=== PATIENT | male | born 1990 | race Caucasian/White ===

== ENCOUNTER 2016-05-20 22:01 | Emergency (ER) | payer MEDICARE ==
[2016-05-20 22:23] VITALS: BP 140/90; PULSE 86; TEMP 98.4; O2SAT 99
--- NOTE | 2016-05-20 23:28 | C.PDOC ---
History Of Present Illness A 25 year old male presents to the emergency room with complaints of mid- sternal chest pain for 2 weeks. Patient reports that he felt a pull in the mid- sternum while stretching upwards. Patient was seen by PMD yesterday, who advised him to use Albuterol inhaler and to take Tylenol. Patient states that he did not take Tylenol and is requesting an MRI of the chest. Patient denies any abdominal pain, nausea, vomiting, dizziness, palpitations, SOB or any other complaints. Time Seen by Provider: 05/20/16 22:26 Chief Complaint (Nursing): Rib Injury History Per: Patient History/Exam Limitations: no limitations Onset/Duration Of Symptoms: Other (2 weeks) Current Symptoms Are (Timing): Still Present Severity: Mild Recent travel outside of the [place]: No Past Medical History Reviewed: Historical Data, Nursing Documentation, Vital Signs Vital Signs: Last Vital Signs Temp 98.4 F 05/20/16 22:14 Pulse 86 05/20/16 22:14 Resp 20 05/20/16 23:32 BP 140/90 05/20/16 22:14 Pulse Ox 99 05/21/16 00:38 - Medical History PMH: Asthma, Back Problems, Bronchitis Family History: States: Unknown Family Hx - Social History Hx Tobacco Use: No Hx Alcohol Use: No Hx Substance Use: No - Immunization History Hx Tetanus Toxoid Vaccination: Yes Hx Influenza Vaccination: Yes Hx Pneumococcal Vaccination: Yes Review Of Systems Except As Marked, All Systems Reviewed And Found Negative. Cardiovascular: Positive for: Chest Pain (Mid-sternal chest pain) Gastrointestinal: Negative for: Nausea, Vomiting, Abdominal Pain Neurological: Negative for: Dizziness Physical Exam - Physical Exam Appears: Well, Non-toxic, No Acute Distress Skin: Normal Color, Warm, Dry Head: Atraumatic, Normacephalic Eye(s): bilateral: Normal Inspection, PERRL Neck: Normal ROM, Supple Chest: Tenderness (Mild reproducible peristernal chest wall tenderness) Cardiovascular: Rhythm Regular Respiratory: Normal Breath Sounds (Good air entry), No Rales, No Rhonchi, No Wheezing Gastrointestinal/Abdominal: Soft, No Tenderness (epigastric), No Guarding, No Rebound Extremity: Normal ROM, No Tenderness Neurological/Psych: Oriented x3, Normal Speech ED Course And Treatment O2 Sat by Pulse Oximetry: 99 Pulse Ox Interpretation: Normal - Radiology CXR: Interpreted by Me, Viewed By Me CXR Interpretation: Yes: No Acute Disease. No: Pnemothorax Progress Note: Patient is lying comfortably on the stretcher playing on his phone. CXR was negative. Patient was given Motrin. On reevaluation, patient notes improvement of pain and feels comfortable going home. Patient instructed to follow up with PMD within a few days. Reassessment Condition: Improved Disposition Counseled Patient/Family Regarding: Diagnosis, Need For Followup, Rx Given - Disposition Referrals: Shaik Matthews MD [Staff Provider] - Disposition: HOME/ ROUTINE Disposition Time: 23:26 Condition: STABLE Additional Instructions: Take motrin for pain Follow up with your doctor Return to ER if increasing pain, nausea, vomiting, sweating, dizziness , difficulty breathing or worse Prescriptions: Ibuprofen [Motrin] 600 mg PO Q6H #30 tab Instructions: Chest Wall Pain (ED) - Clinical Impression Clinical Impression: Chest wall pain - Scribe Statement The provider has reviewed the documentation as recorded by the Scribwero Yost All medical record entries made by the Indiraibwero were at my direction and personally dictated by me. I have reviewed the chart and agree that the record accurately reflects my personal performance of the history, physical exam, medical decision making, and the department course for this patient. I have also personally directed, reviewed, and agree with the discharge instructions and disposition.
[2016-05-20 23:33] VITALS: RESP 20
--- NOTE | 2016-05-21 08:33 | RAD ---
HISTORY: mid chest pain COMPARISON: None available. TECHNIQUE: Chest PA and lateral FINDINGS: LUNGS: No focal consolidation. Please note that chest x-ray has limited sensitivity for the detection of pulmonary masses. PLEURA: No significant pleural effusion identified. No definite pneumothorax . CARDIOVASCULAR: The cardiomediastinal silhouette appears within normal limits of size. OSSEOUS STRUCTURES: Degenerative changes of the spine. VISUALIZED UPPER ABDOMEN: Unremarkable. OTHER FINDINGS: None. IMPRESSION: No focal consolidation, significant pleural effusion, or definite pneumothorax identified.
== END 2016-05-20 23:32 | disposition home or self-care (01) ==
LOC: C.ER 22:01
DX: R07.89 Other chest pain (principal)

== ENCOUNTER 2017-11-09 20:25 | Emergency (ER) | payer MEDICARE ==
[2017-11-09 20:59] VITALS: TEMP 98.1
[2017-11-09] MEDS ORDERED: Sodium Chloride 0.9% 1,000 ML IV ONE (21:53)
--- NOTE | 2017-11-09 21:58 | C.PDOC ---
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 Patient states he had an MRI done 2 years ago and was prescribed gabapentin by Dr. Hair. Patient states that for the past week he has been experiencing tightness of the back of his neck, nausea and headache. Patient also c/o occasional vomiting, dizziness, lightheadedness and cramping in his legs and fingers. Patient states all his symptoms come and go. Patient took Ibuprofen this morning with no relief. Patient denies new trauma, injury, fall, visual changes, weakness, numbness, CP , SOB, abdominal pain. Time Seen by Provider: 11/09/17 21:42 Chief Complaint (Nursing): Dizziness/Lightheaded History Per: Patient History/Exam Limitations: no limitations Onset/Duration Of Symptoms: Days (week), Intermittent Episodes Current Symptoms Are (Timing): Still Present Seizure Or Post-ictal Symptoms: None Fall Associated With With Symptoms: No Severity: None Recent travel outside of the [place]: No Additional History Per: Patient Past Medical History Reviewed: Historical Data, Nursing Documentation, Vital Signs Vital Signs: Last Vital Signs Temp 98.1 F 11/09/17 20:54 Pulse 104 H 11/09/17 20:54 Resp 20 11/09/17 20:54 BP 146/82 11/09/17 20:54 Pulse Ox 98 11/09/17 22:00 - Medical History PMH: Asthma, Back Problems, Bronchitis Surgical History: No Surg Hx Family History: States: Unknown Family Hx - Social History Hx Tobacco Use: No Hx Alcohol Use: No Hx Substance Use: No - Immunization History Hx Tetanus Toxoid Vaccination: No Hx Influenza Vaccination: No Hx Pneumococcal Vaccination: No Review Of Systems Constitutional: Negative for: Fever, Chills Eyes: Negative for: Vision Change Cardiovascular: Negative for: Chest Pain Respiratory: Negative for: Shortness of Breath Gastrointestinal: Negative for: Nausea, Vomiting Musculoskeletal: Positive for: Neck Pain, Arm Pain, Back Pain Skin: Negative for: Rash Neurological: Positive for: Dizziness. Negative for: Weakness, Numbness, Headache Physical Exam - Physical Exam Appears: Non-toxic, No Acute Distress Skin: Normal Color, Warm, Dry Head: Atraumatic, Normacephalic Eye(s): bilateral: Normal Inspection Oral Mucosa: Moist Neck: Normal ROM, No Midline Cervical Tenderness, Supple Chest: Symmetrical Cardiovascular: Rhythm Regular Respiratory: Normal Breath Sounds, No Rales, No Rhonchi, No Wheezing Gastrointestinal/Abdominal: Soft, No Tenderness, No Guarding, No Rebound Back: No Vertebral Tenderness, No Paraspinal Tenderness Extremity: Normal ROM, No Tenderness, No Swelling Neurological/Psych: Oriented x3, Normal Speech, Normal Cognition, Normal Cranial Nerves, Normal Motor, Normal Sensation Gait: Steady ED Course And Treatment - Laboratory Results Result Diagrams: 11/09/17 22:11 11/09/17 22:11 Lab Interpretation: Normal O2 Sat by Pulse Oximetry: 98 (ON RA) Pulse Ox Interpretation: Normal Reevaluation Time: 23:05 Reassessment Condition: Unchanged Medical Decision Making Medical Decision Making: Plan: * Labs * Motrin 600 mg PO * IV fluids Disposition Counseled Patient/Family Regarding: Studies Performed, Diagnosis, Need For Followup, Rx Given - Disposition Referrals: Shaik Matthews MD [Staff Provider] - Disposition: HOME/ ROUTINE Disposition Time: 23:08 Condition: STABLE Prescriptions: Cyclobenzaprine [Flexeril] 10 mg PO TID PRN #10 tab PRN Reason: Pain, Severe (8-10) Meloxicam [Mobic] 15 mg PO DAILY PRN #14 tab PRN Reason: Pain, Severe (8-10) Instructions: Chronic Neck Pain (DC), Dizziness, Nonvertigo, (DC) Forms: [facility] (Gabonese) - Clinical Impression Clinical Impression: Dizziness, Chronic neck pain - Scribe Statement The provider has reviewed the documentation as recorded by the Scribe Jet Azul All medical record entries made by the Scribe were at my direction and personally dictated by me. I have reviewed the chart and agree that the record accurately reflects my personal performance of the history, physical exam, medical decision making, and the department course for this patient. I have also personally directed, reviewed, and agree with the discharge instructions and disposition.
[2017-11-09] MEDS ORDERED: Sodium Chloride 0.9% 1,000 ML ONE (21:59)
[2017-11-09 22:16] LABS: BASO # 0.1 K/uL (0.0-0.2); BASO % 0.8 % (0.0-2.0); EOS # 0.3 K/uL (0.0-0.7); EOS % 3.4 % (0.0-4.0); HEMOGLOBIN 15.4 g/dL (12.0-18.0); LYMPH # 2.6 K/uL (1.0-4.3); LYMPH % 32.7 % (20.0-40.0); MEAN CELL VOLUME 84.1 fL (80.0-94.0); MEAN CORPUSCULAR HEMOGLOBIN 28.8 pg (27.0-31.0); MEAN CORPUSCULAR HGB CONC 34.2 g/dL (33.0-37.0); MEAN PLATELET VOLUME 8.7 fL (7.2-11.7); MONO # 0.5 K/uL (0.0-0.8); MONO % 6.7 % (0.0-10.0); NEUT # 4.6 K/uL (1.8-7.0); NEUT % 56.4 % (50.0-75.0); RBC 5.34 Mil/uL (4.40-5.90); WHITE BLOOD COUNT 8.1 K/uL (4.8-10.8)
[2017-11-09 22:30] LABS: ALB/GLOB RATIO 1.8 (1.0-2.1); ALBUMIN 4.7 g/dL (3.5-5.0); ALT/SGPT 28 U/L (21-72); AST/SGOT 26 U/L (17-59); BLOOD UREA NITROGEN 12 mg/dL (9-20); CALCIUM 9.5 mg/dl (8.6-10.4); GFR NON-AFRICAN AMERICAN > 60
[2017-11-09 23:45] VITALS: BP 124/80; PULSE 68; RESP 16; O2SAT 97
== END 2017-11-09 23:46 | disposition home or self-care (01) ==
LOC: C.ER 20:25
DX: R42 Dizziness and giddiness (principal); G89.29 Other chronic pain; M54.2 Cervicalgia
CPT/HCPCS: 80053; 82550; 83735; 85025; 99285; J7030